=== PATIENT | female | born 1980 | race Hispanic/Latino ===

== ENCOUNTER → 2016-06-20 | Outpatient (CLI) | payer OTHER ==
--- NOTE | 2016-06-20 14:30 | Diagnostic Imaging Report ---
OB ultrasound. INDICATION: Uncertain dates. There are no prior studies available for comparison. There is a single live fetus in variable presentation. heart motion was noted, and a rate of 150 bpm was recorded. The crown-rump length suggests an estimated gestational age of 12 weeks 3 days +/- 1 week. There are no obvious abnormalities identified. The amniotic fluid volume is within normal limits. The placenta appears to be developing anteriorly. There is no pelvic mass or free fluid collection noted. The ovaries were not identified however. IMPRESSION: 1. There is a single live fetus approximately 12 weeks 3 days gestation +/- 1 week. The EDC is January 19, 2017. 2. There are no obvious abnormalities identified. If a more sensitive evaluation of the anatomy is desired, then a short-term (6 to 8-week) followup ultrasound exam should be obtained. Dictated by: Dictated on workstation # [id number]
== END ==
LOC: RAD 10:21
PROVIDERS: ATTEND Family Medicine
DX: Z36 Encounter for antenatal screening of mother (principal)
CPT/HCPCS: 76801

== ENCOUNTER → 2016-06-29 | Outpatient (CLI) | payer OTHER | LOC: LAB 10:35 | PROVIDERS: ATTEND Family Medicine | DX: O99.210 Obesity complicating pregnancy, unspecified trimester (principal); R73.09 Other abnormal glucose | CPT/HCPCS: 36415; 82951; 82952; 82962 ==